=== PATIENT | female | born 1990 | race Caucasian/White ===

== ENCOUNTER 2017-03-25 07:06 | Inpatient (IN) | payer BC, OTHER ==
[~2017-03-25] VITALS: Ht 180.3 cm; Wt 121.4 kg
[2017-04-14] MEDS ORDERED: PRENATAL PLUS (17:34)
[2017-04-14] MEDS ORDERED: ASPIRIN 81M81 MG/TA2 (17:34)
[2017-05-02] VITALS (63 sets, daily range): BP systolic 125–151; BP diastolic 65–89; PULSE 56–134; TEMP 97.4–98.3
[2017-05-02] MEDS ORDERED: PROFERRIN ES12 MG PO (07:44)
[2017-05-02 08:15] LABS: BASO % 0.4 % (0.0-2.0); EOS # 0.2 (0.0-0.7); EOS % 1.9 % (0-4.0); GRAN # 6.1 (1.4-6.5); GRAN % 67.6 % (42.2-75.2); HEMATOCRIT 37.7 % (37.0-47.0); HEMOGLOBIN 13.5 g/dl (12.5-16.0); LYMPH # 2.1 (1.2-3.4); LYMPH % 22.9 % (20.0-51.0); MEAN CELL VOLUME 95 fl (80.0-100.0); MEAN CORPUSCULAR HEMOGLOBIN 34 pg (27.0-31.0); MEAN CORPUSCULAR HGB CONC 36 g/dl (33.0-37.0); MEAN PLATELET VOLUME 12.7 fl (7.4-10.4); MONO # 0.6 (0.1-0.6); MONO % 6.8 % (1.7-9.3); PLATELET COUNT 117 K/mm3 (130-400); RED BLOOD COUNT 3.96 M/mm3 (4.10-5.30); REDCELL DISTRIBUTION WIDTH-CV 12.9 % (11.5-14.5)
[2017-05-03] VITALS (37 sets, daily range): BP systolic 112–164; BP diastolic 56–97; PULSE 62–109; TEMP 97.6–98.9
[2017-05-04 03:45] VITALS: BP 117/68; PULSE 70; TEMP 98.1
[2017-05-04 06:31] LABS: BASO % 0.3 % (0.0-2.0); EOS # 0.1 (0.0-0.7); EOS % 0.9 % (0-4.0); GRAN # 8.1 (1.4-6.5); GRAN % 79.6 % (42.2-75.2); LYMPH # 1.2 (1.2-3.4); LYMPH % 11.8 % (20.0-51.0); MEAN CELL VOLUME 98 fl (80.0-100.0); MEAN CORPUSCULAR HGB CONC 34 g/dl (33.0-37.0); MEAN PLATELET VOLUME 12.1 fl (7.4-10.4); MONO # 0.7 (0.1-0.6); PLATELET COUNT 71 K/mm3 (130-400); RED BLOOD COUNT 2.91 M/mm3 (4.10-5.30); REDCELL DISTRIBUTION WIDTH-CV 13.4 % (11.5-14.5); WHITE BLOOD COUNT 10.2 K/mm3 (4.8-10.8)
[2017-05-04 06:41] LABS: HEMATOCRIT 28.6 % (37.0-47.0); HEMOGLOBIN 9.8 g/dl (12.5-16.0); MEAN CORPUSCULAR HEMOGLOBIN 34 pg (27.0-31.0)
[2017-05-04 08:30] VITALS: BP 131/68; PULSE 70; TEMP 97.8
[2017-05-04 16:10] VITALS: BP 137/74; PULSE 74; TEMP 97.9
[2017-05-04 23:10] VITALS: BP 138/68; PULSE 65; TEMP 97.7
[2017-05-05 07:08] VITALS: BP 126/71; PULSE 52; TEMP 97.6
[2017-05-05 17:00] VITALS: BP 134/80; PULSE 54; TEMP 98
[2017-05-05 20:00] VITALS: BP 143/78; PULSE 58; TEMP 97.8
[2017-05-06 07:00] VITALS: BP 139/77; PULSE 64; TEMP 97.9
[2017-05-06] MEDS ORDERED: IBU600 MG PO (09:09)
[2017-05-06] MEDS ORDERED: PERCOCET 325 MG1 TA2 PO (09:09)
== END 2017-05-06 12:55 | disposition home or self-care (01) | DRG 766 ==
LOC: LDRO → LDR 05-02 06:54 → OB 05-02 06:54 → LDR 05-02 07:05 → OB 05-03 08:00 → EDSTATUS 05-21 07:03 → LDR 05-21 07:04 → LDRO 05-21 07:06
PROVIDERS: Obstetrics & Gynecology
PROC: 10D00Z1 Extraction of Products of Conception, Low, Open Approach (ICD-10-PCS; principal; 2017-05-03)
PROC: 0KQM0ZZ Repair Perineum Muscle, Open Approach (ICD-10-PCS; 2017-05-03)
PROC: 0UQMXZZ Repair Vulva, External Approach (ICD-10-PCS; 2017-05-03)
PROC: 10E0XZZ Delivery of Products of Conception, External Approach (ICD-10-PCS; 2017-05-03)
PROC: 3E033VJ Introduction of Other Hormone into Peripheral Vein, Percutaneous Approach (ICD-10-PCS; 2017-05-03)
DX: O30.043 Twin pregnancy, dichorionic/diamniotic, third trimester (principal); O70.1 Second degree perineal laceration during delivery; O71.82 Other specified trauma to perineum and vulva; O69.81X2 Labor and delivery complicated by cord around neck, without compression, fetus 2; O64.1XX2 Obstructed labor due to breech presentation, fetus 2; Z3A.37 37 weeks gestation of pregnancy; Z37.2 Twins, both liveborn
CPT/HCPCS: J0330; J0690; J1885; J2210; J2270; J2370; J2400; J2590; J2704; J3010; J7120

== ENCOUNTER 2017-04-14 17:17 | Outpatient (CLI) | payer BC, OTHER ==
[~2017-04-14] VITALS: Ht 180.3 cm; Wt 110.5 kg
[2017-04-14 17:21] VITALS: BP 123/71; PULSE 71; TEMP 97.6
[2017-04-14] MEDS ORDERED: PRENATAL PLUS (17:34)
[2017-04-14] MEDS ORDERED: ASPIRIN 81M81 MG/TA2 (17:34)
[2017-04-14 17:40] VITALS: BP 123/71; PULSE 76
[2017-04-14 17:59] VITALS: BP 128/74; PULSE 65
[2017-04-14 18:23] VITALS: BP 123/70; PULSE 70
== END 2017-04-14 18:38 | disposition home or self-care (01) ==
LOC: LDRO 17:17
DX: O99.89 Other specified diseases and conditions complicating pregnancy, childbirth and the puerperium (principal); O30.003 Twin pregnancy, unspecified number of placenta and unspecified number of amniotic sacs, third trimester; R52 Pain, unspecified; Z3A.34 34 weeks gestation of pregnancy

== ENCOUNTER 2019-05-24 07:58 | Outpatient (CLI) | payer OTHER ==
[~2019-05-24] VITALS: Ht 180.3 cm; Wt 106.8 kg
[~2019-05-24 07:58] MED LIST: ASPIRIN 81M81 MG/TA2; IBU600 MG PO; PERCOCET 325 MG1 TA2 PO; PRENATAL PLUS; PROFERRIN ES12 MG PO
[2019-05-24 08:12] VITALS: BP 118/69; PULSE 64; TEMP 97.6
--- NOTE | 2019-05-24 08:20 | NUR ---
G2L2 at 38.5 weeks gestation to LDR2 for external version. Patient changed into gown, wedged left in bed. EFMs explained and applied. FHR 135 bpm and reactive. No CTX per toco or patient reports. VSS. Assessment completed. INT started in left hand. Plan of care reviewed.
--- NOTE | 2019-05-24 08:50 | NUR ---
Dr. Cheung at bedside. Bedside sono confirms vertex presentation and no need for external version. SVE by Dr. Cheung. -3 with membranes swept. Discharge instructions reviewed with patient and spouse.
== END 2019-05-24 09:00 | disposition home or self-care (01) ==
LOC: LDRO 07:58 → LDR 07:59 → LDRO 09:00
DX: O32.1XX0 Maternal care for breech presentation, not applicable or unspecified (principal); Z3A.38 38 weeks gestation of pregnancy
CPT/HCPCS: OP

== ENCOUNTER 2019-06-02 06:51 | Inpatient (IN) | payer OTHER ==
[~2019-06-02] VITALS: Ht 180.3 cm; Wt 106.4 kg
[2019-06-02] VITALS (45 sets, daily range): BP systolic 111–141; BP diastolic 53–93; PULSE 52–106; TEMP 97.9–98.8
--- NOTE | 2019-06-02 06:55 | NUR ---
0655- Pt arrives on unit ambulatory for scheduled induction. Pt and oriented to room. Pt into bathroom, void, change into gown. 0701- Pt into bed, EFM and TOCO applied and tracing. VSS. Assessment completed. 0715- IV start without difficulty, labs obtained. Call light within reach.
[2019-06-02 07:38] LABS: BASO % 0.3 % (0.0-2.0); EOS # 0.1 (0.0-0.7); EOS % 1.4 % (0-4.0); GRAN # 6.8 (1.4-6.5); GRAN % 72.4 % (42.2-75.2); HEMOGLOBIN 11.4 g/dl (12.5-16.0); LYMPH # 1.8 (1.2-3.4); LYMPH % 19.4 % (20.0-51.0); MEAN CELL VOLUME 92 fl (80.0-100.0); MEAN CORPUSCULAR HEMOGLOBIN 30 pg (27.0-31.0); MEAN CORPUSCULAR HGB CONC 33 g/dl (33.0-37.0); MEAN PLATELET VOLUME 11.7 fl (7.4-10.4); MONO # 0.6 (0.1-0.6); MONO % 5.9 % (1.7-9.3); PLATELET COUNT 148 K/mm3 (130-400); RED BLOOD COUNT 3.76 M/mm3 (4.10-5.30); REDCELL DISTRIBUTION WIDTH-CV 13.2 % (11.5-14.5)
[2019-06-02 07:48] LABS: HEMATOCRIT 34.5 % (37.0-47.0)
--- NOTE | 2019-06-02 09:00 | NUR ---
0846- Dr Cheung at bedside, Bedside US, fetus vertex. SVE by , AROM, very uncomfortable for Pt but tolerated well. MD discusses monitoring for an hour and then reevaluating to see if body kicks in on its own. Pt denies questions.
--- NOTE | 2019-06-02 13:30 | NUR ---
1325- Pt repositioned to LL with right leg up on stirrup, EFM and TOCO adjusted, tracing well.
--- NOTE | 2019-06-02 14:15 | NUR ---
1400- SVE by this RN, Pt assisted to RL with left leg up on stirrup.
--- NOTE | 2019-06-02 14:45 | NUR ---
1432- SVE, /-1. Pt assisted to LL with right leg up on stirrup. FHR monitor adjusted. 1441- Pt repositioned to sitting straight up with legs cross-legged. IVF bolus initated. 1446- SVe, -/-1.
--- NOTE | 2019-06-02 15:15 | NUR ---
1500- Recurrent, deep variables down to 60 bpm noted. 1505- SVE by this RN /. Dr Cheung called, see physician notifications. 1512- Recurrent, deep variables continue with slow return to baseline. Pitocin off per MD HENDERSON, see physician notification.
--- NOTE | 2019-06-02 15:30 | NUR ---
1525- O2 on Pt at 10L via mask, Pt repositioned to LL.
--- NOTE | 2019-06-02 15:45 | NUR ---
1544- Dr Cheung at bedside, HARPREET AL/100/-1. VORB to restart Pitocin at 2mu. Pt assisted to RL with left leg up on strirrup. Pt tolerated well.
--- NOTE | 2019-06-02 16:15 | NUR ---
1610- Pt calls RN to bedside, states "feeling pressure". SVE unchanged. Pt RL with left leg up on stirrup.
--- NOTE | 2019-06-02 16:45 | NUR ---
1632- SVE, complete/0 station. Pt and room prepped for pushing. 1638- Chavarria out, pericare completed. 1642- Pt begins pushing with UCs. RN remains at bedside with Pt. O2 via mask at 10L between pushes. FHR variables noted with each pushing, moderate variability noted between.
--- NOTE | 2019-06-02 17:35 | NUR ---
1645- MD at nurses station, monitoring strip. 1724- MD called to bedside by this RN to evaluate pushing and position. Pt continues pushing with UCs. 1730- Pt and room prepped for delivery, Arabella, nursery RN at bedside. 1735- of viable female . Nuchal cord noted x2. placed on mother's abd where dried and stimulated, tended to by nursery RN. Pitocin off. Cord clamped and cut, cord segment obtained by . 1738- Spont. delivery of placenta, Pitocin on at 333ml/hr. Fundus massaged to firm by . 2nd degree laceration repaired by . Pericare completed, ice pack to perineum.
--- NOTE | 2019-06-02 18:10 | NUR ---
1809- Large amount of free-flow bleeding noted with clots. Urine also noted with exam. Dr Cheung at nurses station, called to bedside to evaluate. SVE performed by , clots removed. VORB for Methergine IM now. 1814- Methergine given by this RN. Staight cath by this RN without difficulty, urine noted in tube only. Pericare performed, clean chux and ice pack to perineum. Pt tolerated well.
[2019-06-03 04:15] VITALS: BP 117/73; PULSE 67; TEMP 98.1
[2019-06-03 07:26] VITALS: BP 117/76; PULSE 70
[2019-06-03] MEDS ORDERED: IBU600 MG PO (08:48)
[2019-06-03 12:55] VITALS: BP 134/72; PULSE 67; TEMP 98
[2019-06-03 16:50] VITALS: BP 131/65; PULSE 67; TEMP 97.6
[2019-06-03 20:50] VITALS: BP 129/76; PULSE 70
[2019-06-04 11:42] VITALS: BP 134/74; PULSE 83; TEMP 97.2
== END 2019-06-04 12:00 | disposition home or self-care (01) | DRG 807 ==
LOC: LDR 06:51 → OB 06:51 → LDR 07:22 → OB 21:13
PROVIDERS: ADMIT Obstetrics & Gynecology
PROC: 10E0XZZ Delivery of Products of Conception, External Approach (ICD-10-PCS; principal; 2019-06-02)
PROC: 0KQM0ZZ Repair Perineum Muscle, Open Approach (ICD-10-PCS; 2019-06-02)
PROC: 10907ZC Drainage of Amniotic Fluid, Therapeutic from Products of Conception, Via Natural or Artificial Opening (ICD-10-PCS; 2019-06-02)
PROC: 3E033VJ Introduction of Other Hormone into Peripheral Vein, Percutaneous Approach (ICD-10-PCS; 2019-06-02)
DX: O34.219 Maternal care for unspecified type scar from previous cesarean delivery (principal); Z37.0 Single live birth; O70.1 Second degree perineal laceration during delivery; Z3A.40 40 weeks gestation of pregnancy; O76 Abnormality in fetal heart rate and rhythm complicating labor and delivery
CPT/HCPCS: J2210; J2590; J7120